=== PATIENT | female | born 1965 | race Caucasian/White ===

== ENCOUNTER → 2017-08-06 | Outpatient (CLI) | payer BC | LOC: MC.RAD 09:33 | DX: Z12.31 Encounter for screening mammogram for malignant neoplasm of breast (principal) ==

== ENCOUNTER 2018-01-05 22:35 | Emergency (ER) | payer BC ==
[~2018-01-05] VITALS: Ht 165.1 cm; Wt 72.7 kg
[2018-01-05 22:38] VITALS: TEMP 98.2
[2018-01-05] MEDS ORDERED: PAXIL 10MG10 MG PO (23:29)
[2018-01-05] MEDS ORDERED: OSCAL 500 TAB500 MG PO (23:30)
[2018-01-05] MEDS ORDERED: VITAMIN C500 MG PO (23:30)
[2018-01-05] MEDS ORDERED: CLARITIN 1010 MG/TAB PO (23:30)
[2018-01-05] MEDS ORDERED: FLONASE NASAL S16 GM NS (23:30)
[2018-01-05] MEDS ORDERED: IRON TABLETS325 MG PO (23:31)
[2018-01-05 23:33] LABS: BASO % 0.5 % (0.0-2.0); EOS # 0.4 (0.0-0.7); EOS % 4.9 % (0-4.0); GRAN % 48.3 % (42.2-75.2); HEMATOCRIT 38.4 % (37.0-47.0); HEMOGLOBIN 12.7 g/dl (12.5-16.0); LYMPH # 3.2 (1.2-3.4); LYMPH % 38.1 % (20.0-51.0); MEAN CELL VOLUME 94 fl (80.0-100.0); MEAN CORPUSCULAR HEMOGLOBIN 31 pg (27.0-31.0); MEAN CORPUSCULAR HGB CONC 33 g/dl (33.0-37.0); MEAN PLATELET VOLUME 9.1 fl (7.4-10.4); MONO # 0.7 (0.1-0.6); PLATELET COUNT 250 K/mm3 (130-400); RED BLOOD COUNT 4.07 M/mm3 (4.10-5.30); REDCELL DISTRIBUTION WIDTH-CV 12.8 % (11.5-14.5)
[2018-01-05 23:39] LABS: INR 0.9 (0.8-3.0); PROTHROMBIN TIME 10.8 SECONDS (9.7-12.8)
[2018-01-05 23:41] LABS: PARTIAL THROMBOPLASTIN TIME 30.7 SECONDS (26.0-37.0)
[2018-01-05 23:42] LABS: ALBUMIN 4.6 gm/dL (3.5-5.0); BILIRUBIN,TOTAL 0.4 mg/dL (0.0-1.0); CALCIUM 10.1 mg/dL (8.4-10.2); CREATININE, serum 0.78 mg/dL (0.52-1.25); POTASSIUM 3.8 mmol/L (3.4-5.0)
[2018-01-06 01:09] VITALS: BP 126/70; PULSE 67
== END 2018-01-06 01:14 | disposition home or self-care (01) ==
LOC: COL.ER 22:35
PROVIDERS: Emergency Medicine
DX: N93.9 Abnormal uterine and vaginal bleeding, unspecified (principal); Z79.51 Long term (current) use of inhaled steroids
CPT/HCPCS: J7030

== ENCOUNTER 2018-03-21 21:31 | Emergency (ER) | payer BC ==
[~2018-03-21] VITALS: Ht 165.1 cm; Wt 72.3 kg
[~2018-03-21 21:31] MED LIST: CLARITIN 1010 MG/TAB PO; FLONASE NASAL S16 GM NS; IRON TABLETS325 MG PO; OSCAL 500 TAB500 MG PO; PAXIL 10MG10 MG PO; VITAMIN C500 MG PO
[2018-03-21] MEDS ORDERED: AMOXICILLIN 8751 TAB PO (22:20)
[2018-03-21 23:53] VITALS: BP 116/66; PULSE 67; TEMP 99.2
== END 2018-03-21 23:53 | disposition home or self-care (01) ==
LOC: COL.ER 21:31
DX: S61.432A Puncture wound without foreign body of left hand, initial encounter (principal); S61.452A Open bite of left hand, initial encounter; F41.9 Anxiety disorder, unspecified; Z88.1 Allergy status to other antibiotic agents; Z79.51 Long term (current) use of inhaled steroids; Z23 Encounter for immunization; W55.01XA Bitten by cat, initial encounter; Y92.007 Garden or yard of unspecified non-institutional (private) residence as the place of occurrence of the external cause

== ENCOUNTER → 2018-08-22 | Outpatient (CLI) | payer BC ==
[~2018-08-22] MED LIST changes: +AMOXICILLIN 8751 TAB PO
== END ==
LOC: MC.RAD 08:00
DX: Z12.31 Encounter for screening mammogram for malignant neoplasm of breast (principal)

== ENCOUNTER → 2019-09-24 | Outpatient (CLI) | payer BC | LOC: MC.RAD 08:00 | DX: Z12.31 Encounter for screening mammogram for malignant neoplasm of breast (principal) ==

== ENCOUNTER 2022-07-23 19:18 | Emergency (ER) | payer BC ==
[~2022-07-23] VITALS: Ht 165.1 cm; Wt 70.5 kg
[2022-07-23] MEDS ORDERED: CEPHALEXIN500 M1 PO (20:33)
[2022-07-23 20:38] VITALS: BP 134/64; PULSE 62; TEMP 98.1
== END 2022-07-23 20:58 | disposition home or self-care (01) ==
LOC: COL.ER 19:18
DX: S61.111A Laceration without foreign body of right thumb with damage to nail, initial encounter (principal); Z91.040 Latex allergy status; Z88.1 Allergy status to other antibiotic agents; Z28.310 Unvaccinated for COVID-19; W26.0XXA Contact with knife, initial encounter